=== PATIENT | male | born 1980 | race African-American/Black ===

== ENCOUNTER → 2020-07-03 | Outpatient (CLI) | payer OTHER | END | disposition home or self-care (01) | LOC: LAB 07:16 | PROVIDERS: ATTEND Nurse Practitioner Family | DX: U07.1 COVID-19 (principal) | CPT/HCPCS: C9803; U0003 ==

== ENCOUNTER 2024-03-12 21:32 | Emergency (ER) | payer BC, OTHER ==
[~2024-03-12] VITALS: Ht 185.4 cm; Wt 109.0 kg
[2024-03-12 21:37] VITALS: BP 142/102
[2024-03-12] MEDS: IBUPROFEN 800 MG TAB PO ONE (23:14)
[2024-03-12] MEDS: AMOXICILLIN/CLAVUL 875 MG TAB PO ONE (23:14)
[2024-03-12] MEDS ORDERED: AUG875T PO (23:32)
[2024-03-12] MEDS ORDERED: ACET500T58 PO (23:32)
[2024-03-12] MEDS ORDERED: IBUP-1455 PO (23:32)
[2024-03-12] MEDS: TETANUS-DIPTH-ACEL PERTUSSIS 0.5ML SYR Tdap IM ONE (23:44)
[2024-03-12 23:48] VITALS: PULSE 108; RESP 18; O2SAT 98
== END 2024-03-12 23:50 | disposition home or self-care (01) ==
LOC: ER 21:32 → EEVIPCON 21:32 → ER 23:50
DX: S61.412A Laceration without foreign body of left hand, initial encounter (principal); Z91.018 Allergy to other foods; W54.0XXA Bitten by dog, initial encounter; Y93.89 Activity, other specified; Y92.89 Other specified places as the place of occurrence of the external cause; Y99.8 Other external cause status
CPT/HCPCS: 12002; 12004; 90471; 90715